=== PATIENT | male | born 1980 | race Caucasian/White ===

== ENCOUNTER 2016-09-16 07:49 | Emergency (ER) | payer BC, OTHER ==
[2016-09-16 08:07] VITALS: BP 134/64
[2016-09-16] MEDS ORDERED: Ibuprofen TAB* 600 MG PO ONE (08:14)
--- NOTE | 2016-09-16 08:56 | UC ---
Iwona Bragg Auryana, scribed for Arturo Cameron MD on 09/16/16 at 0840 . Throat Pain/Nasal Edgar HPI - HPI Summary HPI Summary: 36 year old male comes in with sore throat starting Wednesday morning (09/14/16) progressively worse since then. He reports fever, chills, worsening sore throat , and diffuse myalgia. He denies rhinorrhea, ear pain, and neck pain. He states that no one at home is sick but that a coworker was sick last week with strep throat. Patient reports taking 1 tablet (200 mg) at 03:00 today. PMHx is asthma- states increased severity this allergy season. - History of Current Complaint Chief Complaint: UCRespiratory Stated Complaint: THROAT PAIN Time Seen by Provider: 09/16/16 07:50 Hx Obtained From: Patient Onset/Duration: Gradual Onset, Lasting Days - 2, Still Present, Worse Since - progressively Severity: Mild Cough: None Associated Signs & Symptoms: Positive: Fever, Other - chills, worsening sore throat, and diffuse myalgia Related History: Other (Noted In Comments) - PMHx of asthma- reports worse with current allergy season - Allergies/Home Medications Allergies/Adverse Reactions: Allergies Allergy/AdvReac Type Severity Reaction Status Date / Time Amoxicillin Allergy Hives Verified 09/16/16 07:58 Home Medications: Home Medications Acetaminophen [Tylenol] 650 mg PO SEE INSTRUCTIONS PRN 09/16/16 [History Confirmed 09/16/16] Albuterol HFA INHALER* [Ventolin HFA Inhaler*] 1 puff INH Q6H PRN 09/16/16 [ History Confirmed 09/16/16] Fluticasone-Salmeterol 250-50* [Advair Diskus 250-50*] 1 puff INH BID 09/16/16 [ History Confirmed 09/16/16] Ibuprofen [Advil] 200 mg PO SEE INSTRUCTIONS PRN 09/16/16 [History Confirmed 07/31] PMH/Surg Hx/FS Hx/Imm Hx Cardiovascular History Of: Denies: Cardiac Disorders Respiratory History Of: Reports: Asthma - Surgical History Surgical History: Yes Surgery Procedure, Year, and Place: testicle undescendent. left shoulder arthrosscopy - Family History Known Family History: Positive: None - Social History Alcohol Use: None Substance Use Type: None Smoking Status (MU): Never Smoked Tobacco - Immunization History Most Recent Influenza Vaccination: utd Most Recent Tetanus Shot: utd Review of Systems Constitutional: Fever, Chills Skin: Negative Eyes: Negative ENT: Sore Throat Respiratory: Cough Cardiovascular: Negative Gastrointestinal: Negative Genitourinary: Negative Motor: Negative Neurovascular: Negative Musculoskeletal: Negative Neurological: Negative Psychological: Negative All Other Systems Reviewed And Are Negative: Yes Physical Exam Triage Information Reviewed: Yes Appearance: Well-Nourished, Ill-Appearing - mildly Vital Signs: Initial Vital Signs Temp 99.9 F 09/16/16 08:00 Pulse 81 09/16/16 08:00 Resp 18 09/16/16 08:00 BP 134/64 09/16/16 08:00 Pulse Ox 97 09/16/16 08:00 Vital Signs Reviewed: Yes Eyes: Positive: Conjunctiva Clear ENT: Positive: Hearing grossly normal, Pharyngeal erythema - without exudate, TMs normal. Negative: Tonsillar exudate Dental: Positive: Cervical Lymphadenopathy - anterior Neck: Positive: Supple, Nontender - with full ROM Respiratory: Positive: Lungs clear Neurological: Positive: Alert Psychological: Positive: Age Appropriate Behavior Diagnostics - Laboratory Diagnostic Studies Completed/Ordered: Rapid Strep Test- positive Throat Pain/Nasal Course/Dx - Course Assessment/Plan: RX ZPAC - Differential Dx/Diagnosis Provider Diagnoses: STREP THROAT Discharge - Discharge Plan Condition: Stable Disposition: HOME Prescriptions: Azithromyxin CLARK (NF) [Z-Clark (Zithromax) 250 mg tabs #6] 2 tab PO .TODAY, THEN 1 DAILY #6 tab Patient Education Materials: Strep Throat (ED) Referrals: Arturo Brown MD [Primary Care Provider] - If Needed Additional Instructions: FOLLOW UP WITH YOUR DOCTOR. GO THE EMERGENCY DEPARTMENT WITH ANY WORSENING OF YOUR CONDITION OR QUESTIONS OR CONCERNS. The documentation as recorded by the Iwona sharif Auryana accurately reflects the service I personally performed and the decisions made by me, Arturo Cameron MD.
== END 2016-09-16 08:46 | disposition home or self-care (01) ==
LOC: UCEAST 07:49
DX: J02.0 Streptococcal pharyngitis (principal); Z88.1 Allergy status to other antibiotic agents; J45.909 Unspecified asthma, uncomplicated
CPT/HCPCS: 87502; 87651; 99212; A9270-GY; G0463

== ENCOUNTER 2018-10-10 07:03 | Emergency (ER) | payer BC, OTHER ==
[2018-10-10 07:15] VITALS: BP 117/80
--- NOTE | 2018-10-10 07:17 | UC ---
Bite Injury/Animal HPI - HPI Summary HPI Summary: Patient presents to urgent care for evaluation of a tick bite wound. Patient states he had a tick on his leg he noted Wednesday - he removed with tweazers. He thinks it became embedded Thur (<24 hours). Patient states he is concerned there may be a retained head. Patient states this morning it was a little bit red. Patient states he wanted checked because he is concerned this could be Lyme disease. No fevers or chills. No body aches. No recent tick bite other than . Patient's tetanus is up-to-date. Patient states he's been manipulating the wound intermittently. Medications reviewed this visit. - History of Current Complaint Chief Complaint: UCSkin Stated Complaint: TICK BITE Hx Obtained From: Patient Pain Intensity: 2 - Allergies/Home Medications Allergies/Adverse Reactions: Allergies Allergy/AdvReac Type Severity Reaction Status Date / Time MS Amoxicillin [Amoxicillin] Allergy Hives Verified 09/16/16 07:58 PMH/Surg Hx/FS Hx/Imm Hx - Surgical History Surgical History: Yes Surgery Procedure, Year, and Place: testicle undescendent. left shoulder arthrosscopy - Family History Known Family History: Positive: None - Social History Alcohol Use: Rare Substance Use Type: None Smoking Status (MU): Never Smoked Tobacco Have You Smoked in the Last Year: No - Immunization History Most Recent Influenza Vaccination: utd Most Recent Tetanus Shot: utd Review of Systems All Other Systems Reviewed And Are Negative: Yes Constitutional: Positive: Negative Skin: Positive: Other - right thigh Physical Exam - Summary Physical Exam Summary: Vital Signs Reviewed: Yes A+Ox3, no distress Eyes: Conjunctiva Clear ENT: Hearing grossly normal neck: supple Respiratory: Positive: No respiratory distress, No accessory muscle use Cardiovascular: skin color reflect adequate perfusion Musculoskeletal Exam: MUNOZ x 4 without difficulty Neurological: Positive: Alert, ambulatory without difficulty Psychological: Positive: Normal Response To Family Skin: Positive: no ecchymosis, right anterior proximal thigh. Patient with a dime size area of erythema, slightly raised, no fluctuance The center of this is a scab lesion. Under magnification appears that there may be a small piece of tick Triage Information Reviewed: Yes Vital Signs: Initial Vital Signs Temp 98.7 F 10/10/18 07:08 Pulse 70 10/10/18 07:08 Resp 16 10/10/18 07:08 BP 117/80 10/10/18 07:08 Pulse Ox 97 10/10/18 07:08 Bite Injury Course/Dx - Course Course Of Treatment: Patient presents to urgent care for evaluation of a wound on the right proximal anterior thigh. Wound is size of a dime. In the middle appears to be retained part of a tick. No flexion. No drainage. Discussed with patient length. No concern for Lyme rash. 2 tic on for less than 24 hours. Suspected local irritation from the tic as well as patient's manipulation. Discussed with patient and by. Warm soaks we will expel. Motrin /Tylenol. I did discuss with patient Doxy prophylaxis. Nonacute for CBC. Patient declined taken today. To give patient to test her and instructed used removed. Patient comfortable in agreement with plan. - Differential Dx/Diagnosis Provider Diagnosis: Tick bite Discharge - Sign-Out/Discharge Documenting (check all that apply): Patient Departure All imaging exams completed and their final reports reviewed: No Studies - Discharge Plan Condition: Stable Disposition: HOME Patient Education Materials: Tick Bite (ED) Referrals: Arturo Brown MD [Primary Care Provider] - Additional Instructions: Keep area clean and dry Warm wet soaks, 20 minutes at a time, to help keep tissue softness - your body will expel any retained parts If you the area on the skin is itchy - it is okay to put hydrocortisone cream or benadaryl cream to your wound Check yourself daily for ticks after you have been working in the [employer] Contact your doctor or return with questions or concerns Approach to prophylaxis : According to the Infectious Diseases Society of [place] (IDSA) guidelines that recommend antibiotic prophylaxis only in patients who meet all of the following criteria: 1. Attached tick identified as an adult or nymphal I. scapularis tick (deer tick). 2. Tick is estimated to have been attached for 36 hours (by degree of engorgement or time of exposure). 3. Prophylaxis is begun within 72 hours of tick removal. Local rate of infection of ticks with B. burgdorferi is 20 percent if attached for over 48 hours (these rates of infection have been shown to occur in parts of [place], parts of the [facility], and parts of [place] and [place]). If you experience a tick and time of attachment is believed to be less than 36 hours, you may remove the tick with head intact and no need for prophylaxis. If over 36 hours, please come into UC. Prophylactic doxycycline is not recommended for ticks attached less than 36 hours. - Billing Disposition and Condition Condition: STABLE Disposition: Home
== END 2018-10-10 07:54 | disposition home or self-care (01) ==
LOC: UCEAST 07:03
DX: S70.361A Insect bite (nonvenomous), right thigh, initial encounter (principal); W57.XXXA Bitten or stung by nonvenomous insect and other nonvenomous arthropods, initial encounter; Y92.9 Unspecified place or not applicable
CPT/HCPCS: 99211; G0463

== ENCOUNTER 2019-02-07 11:21 | Emergency (ER) | payer BC, OTHER ==
[2019-02-07 11:40] VITALS: BP 115/70
--- NOTE | 2019-02-07 12:11 | UC ---
Respiratory Complaint HPI - HPI Summary HPI Summary: Patient is a 39yo male presenting with nasal congestion x2 weeks, and SOB and wheezing x3 days. Notes seasonal allergies that have been present the last week. Hx of asthma. Patient states wheezing has increased since the weekend. Notes intermittent productive cough. Patient denies fever, chills, n/v/d. States he took mucinex the past couple days which helped nasal congestion. His wheezing is what is concerning him most today. He has been using his albuterol inhaler twice daily for three days without relief. Normally he only needs it twice a month. - History of Current Complaint Chief Complaint: UCRespiratory Stated Complaint: RESP ISSUE Hx Obtained From: Patient Severity Currently: Mild Pain Intensity: 3 Pain Scale Used: 0-10 Numeric Aggravating Factors: Exertion Alleviating Factors: Bronchodilator Associated Signs And Symptoms: Positive: Wheezing. Negative: Dyspnea, Fever, Pleuritic Chest Pain, Sinus Discomfort Related History: Seasonal Allergies - Allergies/Home Medications Allergies/Adverse Reactions: Allergies Allergy/AdvReac Type Severity Reaction Status Date / Time amoxicillin Allergy Hives Verified 02/07/19 11:40 Home Medications: Home Medications guaiFENesin [Mucinex] 1 tab PO ONCE PRN 02/07/19 [History Confirmed 02/07/19] PMH/Surg Hx/FS Hx/Imm Hx Respiratory History: Asthma - Surgical History Surgical History: Yes Surgery Procedure, Year, and Place: testicle undescendent. left shoulder arthrosscopy - Family History Known Family History: Positive: None, Non-Contributory - Social History Alcohol Use: Rare Substance Use Type: None Smoking Status (MU): Never Smoked Tobacco Have You Smoked in the Last Year: No - Immunization History Most Recent Influenza Vaccination: utd Most Recent Tetanus Shot: utd Review of Systems All Other Systems Reviewed And Are Negative: Yes Constitutional: Negative: Fever, Chills, Fatigue Skin: Positive: Negative Eyes: Positive: Negative. Negative: Drainage, Eye Redness ENT: Positive: Sinus Congestion, Other - sinus pressure. Negative: Sore Throat , Ear Ache, Nasal Discharge, Sinus Pain/Tenderness Respiratory: Positive: Shortness Of Breath, Cough, Other - wheezing Cardiovascular: Positive: Negative. Negative: Palpitations Gastrointestinal: Positive: Negative. Negative: Abdominal Pain, Vomiting, Diarrhea, Nausea Musculoskeletal: Positive: Negative Neurological: Positive: Negative Physical Exam Triage Information Reviewed: Yes Appearance: Well-Appearing, No Pain Distress, Well-Nourished Vital Signs: Initial Vital Signs Temp 97.7 F 02/07/19 11:36 Pulse 70 02/07/19 11:36 Resp 18 02/07/19 11:36 BP 115/70 02/07/19 11:36 Pulse Ox 97 02/07/19 11:36 Vital Signs Reviewed: Yes Eyes: Positive: Conjunctiva Clear ENT: Positive: Hearing grossly normal, Nasal congestion. Negative: Nasal drainage Neck exam: Normal Neck: Positive: Supple, Nontender, No Lymphadenopathy Respiratory: Positive: No respiratory distress, No accessory muscle use, Wheezing, Expiration. Negative: Crackles, Rhonchi, Stridor Cardiovascular Exam: Normal Cardiovascular: Positive: RRR. Negative: Tachycardia Neurological: Positive: Alert Psychological: Positive: Age Appropriate Behavior Respiratory Course/Dx - Course Course Of Treatment: The patient received an albuterol treatment and a dose of oral steroids here. He expressed relief of symptoms after the treatment. I also gave him a short course of steroids prescribed for home. Instructed patient that he may continue to use his inhaler as needed for SOB and wheezing. He can also continue mucinex , claritin and nasal saline spray as directed to help relieve congestion. I instructed the patient to follow up with his PCP if symptoms persist. Instructed him to go to the emergency room if he experiences worsening SOB or difficulty breathing, fever, nausea, or vomiting. Patient voiced understanding and agreed to treatment plan. - Differential Dx/Diagnosis Provider Diagnosis: Wheezing, Upper respiratory infection Discharge ED - Sign-Out/Discharge Documenting (check all that apply): Patient Departure All imaging exams completed and their final reports reviewed: No Studies - Discharge Plan Condition: Stable Disposition: HOME Prescriptions: predniSONE TAB* [Deltasone 20 MG TAB*] 20 mg PO DAILY #5 tab Patient Education Materials: Prednisone (By mouth), Wheezing (ED) Referrals: Arturo Brown MD [Primary Care Provider] - If Needed Additional Instructions: As discussed, you may continue your over the counter cough and cold medications as directed for relief of cold symptoms. You may also use a nasal saline spray to help alleviate congestion. Take the prednisone as prescribed to help alleviate your chest congestion and wheezing. Follow up with your primary care physician if your symptoms persist. Go to the emergency department if you experience fever, worsening shortness of breath, coughing up blood, or nausea and vomiting. - Billing Disposition and Condition Condition: STABLE Disposition: Home
[2019-02-07] MEDS ORDERED: Albuterol 2.5 MG/3 ML NEB.SOL* (0.083%) INH ONE (12:18)
[2019-02-07] MEDS ORDERED: predniSONE TAB* 20 MG PO ONE (12:21)
== END 2019-02-07 13:00 | disposition home or self-care (01) ==
LOC: UCEAST 11:21
DX: J06.9 Acute upper respiratory infection, unspecified (principal); J45.909 Unspecified asthma, uncomplicated
CPT/HCPCS: 99212; G0463; J7512

== ENCOUNTER 2019-02-15 13:30 | Emergency (ER) | payer BC, OTHER ==
[2019-02-15 13:33] VITALS: BP 152/96
== END 2019-02-15 14:21 | disposition left against medical advice (07) ==
LOC: ED 13:30
DX: R06.02 Shortness of breath (principal); Z53.21 Procedure and treatment not carried out due to patient leaving prior to being seen by health care provider

== ENCOUNTER 2019-02-15 14:47 | Emergency (ER) | payer BC, OTHER ==
[2019-02-15 15:04] VITALS: BP 124/74
--- NOTE | 2019-02-15 15:22 | UC ---
Respiratory Complaint HPI - HPI Summary HPI Summary: 39 yo male presents with cough. He tells me that over the last 2 weeks has been having cold symptoms with sinus congestion, runny nose, intermittently productive cough, and intermittent shortness of breath. He was seen about a week ago and dx'd with viral bronchitis and placed on prednisone. He took the prednisone with mild improvement of his cough, but symptoms returned when he stopped. He notes that he has asthma and has been using his inhalers as directed. Denies fever, chills, sore throat, chest pain, abdominal pain, n/v. - History of Current Complaint Chief Complaint: UCRespiratory Stated Complaint: CHEST CONGESTION Time Seen by Provider: 02/15/19 15:22 Hx Obtained From: Patient Severity Initially: Mild Severity Currently: Mild Pain Intensity: 1 Pain Scale Used: 0-10 Numeric Character: Cough: Nonproductive - Allergies/Home Medications Allergies/Adverse Reactions: Allergies Allergy/AdvReac Type Severity Reaction Status Date / Time amoxicillin Allergy Hives Verified 02/15/19 15:06 Home Medications: Home Medications Fluticasone-Salmeterol 250-50* [Advair Diskus 250-50*] 1 puff INH BID 02/15/19 [ History Confirmed 02/15/19] PMH/Surg Hx/FS Hx/Imm Hx Respiratory History: Asthma - Surgical History Surgical History: Yes Surgery Procedure, Year, and Place: testicle undescendent. left shoulder arthrosscopy - Family History Known Family History: Positive: Non-Contributory - Social History Lives: With Family Alcohol Use: Rare Substance Use Type: None Smoking Status (MU): Former Smoker Have You Smoked in the Last Year: No - Immunization History Most Recent Influenza Vaccination: utd Most Recent Tetanus Shot: utd Review of Systems All Other Systems Reviewed And Are Negative: No Constitutional: Positive: Negative Skin: Positive: Negative Eyes: Positive: Negative ENT: Positive: Nasal Discharge, Sinus Congestion, Sinus Pain/Tenderness Respiratory: Positive: Cough Cardiovascular: Positive: Negative Gastrointestinal: Positive: Negative Neurological: Positive: Negative Psychological: Positive: Negative Physical Exam - Summary Physical Exam Summary: GENERAL: NAD. WDWN. No pain distress. SKIN: No rashes, sores, lesions, or open wounds. HEENT: Head: AT/NC Eyes: Conjunctiva clear without inflammation or discharge. Ears: Hearing grossly normal. TMs intact, no bulging, erythema, or edema. Nose: Nasal mucosa mildly swollen and erythematous with yellow/ clear discharge. TTP maxillary and frontal sinus. Positive post nasal drip Throat: Posterior oropharynx without exudates, erythema, or tonsillar enlargement. Uvula midline. NECK: Supple. Nontender. No lymphadenopathy. CHEST: Mild wheezing throughout. No r/r. No accessory muscle use. Breathing comfortably and in no distress. CV: RRR. Pulses intact. Cap refill <2seconds NEURO: Alert. PSYCH: Age appropriate behavior. Triage Information Reviewed: Yes Vital Signs: Initial Vital Signs Temp 97.9 F 02/15/19 15:00 Pulse 88 02/15/19 15:00 Resp 17 02/15/19 15:00 BP 124/74 02/15/19 15:00 Pulse Ox 98 02/15/19 15:00 Vital Signs Reviewed: Yes Diagnostics - Radiology CXr Radiology Interpretation Completed By: Radiologist Summary of Radiographic Findings: IMPRESSION: NO ACTIVE CARDIOPULMONARY DISEASE. Respiratory Course/Dx - Course Course Of Treatment: Pt declined nebulizer treatment today. CXR as above. Suspect bronchitis. Given his continued symptoms - will rx for antibiotics at this time. - Differential Dx/Diagnosis Provider Diagnosis: Bronchitis Discharge ED - Sign-Out/Discharge Documenting (check all that apply): Patient Departure All imaging exams completed and their final reports reviewed: Yes - Discharge Plan Condition: Stable Disposition: HOME Prescriptions: Azithromycin TAB* [Zithromax TAB (Z-KALEE) 250 mg #6 tabs] 2 tab PO .TODAY, THEN 1 DAILY #1 kalee Patient Education Materials: Acute Bronchitis (ED) Referrals: Arturo Brown MD [Primary Care Provider] - Additional Instructions: If you develop a fever, shortness of breath, chest pain, new or worsening symptoms - please call your PCP or go to the ED immediately. Continue using your at home inhalers as directed - Billing Disposition and Condition Condition: STABLE Disposition: Home
== END 2019-02-15 16:00 | disposition home or self-care (01) ==
LOC: UCEAST 14:47
DX: J40 Bronchitis, not specified as acute or chronic (principal); J45.909 Unspecified asthma, uncomplicated; Z88.0 Allergy status to penicillin; Z87.891 Personal history of nicotine dependence
CPT/HCPCS: 71046; 99212; G0463